=== PATIENT | female | born 1975 | race Caucasian/White ===

== ENCOUNTER 2017-01-26 08:42 | Day surgery (SDC) | payer BC ==
[2017-01-24 10:57] LABS: BILIRUBIN,URINE NEGATIVE (NEGATIVE); BLOOD, URINE NEGATIVE (NEGATIVE); CLARITY/URINE CLEAR (CLEAR); COLOR,URINE YELLOW (YELLOW); GLUCOSE,URINE NEGATIVE (NEGATIVE); KETONES,URINE NEGATIVE (NEGATIVE); LEUKOCYTE ESTERASE ,URINE NEGATIVE (NEGATIVE); NITRITE, URINE NEGATIVE (NEGATIVE); PROTEIN URINE NEGATIVE (NEGATIVE); UROBILINOGEN,URINE 0.2 (0.2-1.0)
[2017-01-24 10:58] LABS: BASOPHILS # (AUTO) 0.1 K/uL (0.0-0.2); EOSINOPHILS # (AUTO) 0.2 K/uL (0.0-0.4); HEMATOCRIT 37.7 % (36-48); HEMOGLOBIN 12.7 g/dL (12.0-16.0); LYMPHOCYTES # (AUTO) 1.2 K/uL (1.0-5.5); MEAN CORPUSCULAR HEMOGLOBIN 32 pg (27-31); MEAN CORPUSCULAR HGB CONC 34 % (32-36); MEAN CORPUSCULAR VOLUME 94 fL (79.0-98.0); MONOCYTES # (AUTO) 0.3 K/uL (0.0-1.0); MONOCYTES % (AUTO) 4.3 % (1.7-9.3); NEUTROPHILS # (AUTO) 4.4 K/uL (1.8-7.7); NEUTROPHILS % (AUTO) 71.7 % (40.0-70.0); PLATELET COUNT (AUTO) 307 K/uL (130-430); RED BLOOD CELL COUNT(AUTO) 4.03 MIL/uL (4.2-6.2); RED CELL DISTRIBUTION WIDTH 12.2 % (9.0-15.0); WHITE BLOOD COUNT (AUTO) 6.3 K/uL (4.8-10.8)
[~2017-01-26] VITALS: Ht 157.5 cm; Wt 61.7 kg
[2017-01-26] MEDS ORDERED: KETOROLAC TROMETHAMINE 30 MG VIAL IVP ONE (10:05)
[2017-01-26] MEDS ORDERED: SUCCINYLCHOLINE CHLORIDE 20 MG/ML(QUELICIN) IVP ONE (10:05)
[2017-01-26] MEDS ORDERED: SEVOFLURANE 15 MIN GAS INH ONE (10:05)
[2017-01-26] MEDS ORDERED: NS 1000 ML BAG IV ONE (10:05)
[2017-01-26] MEDS ORDERED: ROCURONIUM BROMIDE 10 MG/ML (ZEMURON) IV ONE (10:05)
[2017-01-26] MEDS ORDERED: ONDANSETRON HCL 4 MG/2 ML VIAL IVP ONE (10:05)
[2017-01-26] MEDS ORDERED: PROPOFOL 200MG/ 20ML VIAL (DIPRIVAN) IV ONE (10:05)
[2017-01-26] MEDS ORDERED: BUPIVACAINE /EPINEPHRINE/PF 0.5% 30 ML VIAL INJ ONE (10:05)
[2017-01-26] MEDS ORDERED: MIDAZOLAM HCL 5 MG/5 ML VIAL IVP ONE (10:05)
[2017-01-26] MEDS ORDERED: fentaNYL CITRATE 250 MCG/5 ML AMP IV ONE (10:05)
[2017-01-26] MEDS ORDERED: DEXAMETHASONE SOD PHOSPHATE 4 MG/ML VIAL IVP ONE (10:05)
[2017-01-26] MEDS ORDERED: LR 1,000 ML IV SCH (11:04)
[2017-01-26] MEDS ORDERED: ONDANSETRON HCL 4 MG/2 ML VIAL IVP PRN (11:15)
[2017-01-26] MEDS ORDERED: MEPERIDINE HCL/PF 25 MG/ML DISP.SYRIN IVP PRN (11:15)
[2017-01-26] MEDS ORDERED: HYDROmorphone 2 MG/ML VIAL IVP PRN ×2 (11:15)
[2017-01-26] MEDS ORDERED: PROMETHAZINE HCL 25 MG/ML AMP IM PRN (11:15)
[2017-01-26] MEDS ORDERED: OXYCODONE/ACETAMINOPHEN 5-325 TABLET PO PRN (11:15)
[2017-01-26] MEDS ORDERED: HYDROmorphone 1 MG INJ. 1 MG/ML AMPUL IVP PRN (11:15)
[2017-01-26] MEDS ORDERED: HYDROmorphone 2 MG TAB PO PRN (11:15)
[2017-01-26 11:55] VITALS: BP_SYST 113
== END 2017-01-26 12:44 | disposition home or self-care (01) ==
LOC: SDS 08:42 → SMU 08:50 → SDS 12:44
PROVIDERS: ATTEND Obstetrics & Gynecology
DX: Z30.2 Encounter for sterilization (principal); E78.00 Pure hypercholesterolemia, unspecified; M54.5 Low back pain; M26.629 Arthralgia of temporomandibular joint, unspecified side; G43.909 Migraine, unspecified, not intractable, without status migrainosus; J45.990 Exercise induced bronchospasm
CPT/HCPCS: 36415; 58670; 81003; 84703; 85025; 86886; 86900; 86901; C1727; J0330; J1100; J1885; J2250; J2405; J2704; J3010; J3490; J7030